=== PATIENT | male | born 1960 ===

== ENCOUNTER 2017-01-16 12:36 | Inpatient (IN) | payer OTHER ==
[2017-01-16] MEDS ORDERED: Sodium Chloride 0.9% 1,000 ML IV ONE (13:15)
[2017-01-16 13:25] LABS: BASO # 0.1 K/uL (0.0-0.2); BASO % 0.9 % (0.0-2.0); EOS % 0.4 % (0.0-4.0); HEMATOCRIT 18.4 % (35.0-51.0); LYMPH # 2.3 K/uL (1.0-4.3); LYMPH % 28.6 % (20.0-40.0); MEAN CELL VOLUME 87.2 fL (80.0-94.0); MEAN CORPUSCULAR HEMOGLOBIN 29.2 pg (27.0-31.0); MEAN CORPUSCULAR HGB CONC 33.5 g/dL (33.0-37.0); MEAN PLATELET VOLUME 10.3 fL (7.2-11.7); MONO # 0.5 K/uL (0.0-0.8); MONO % 6.6 % (0.0-10.0); NRBC % 0.1 % (0.0-2.0); RED CELL DISTRIBUTION WIDTH 13.5 % (11.5-14.5); WHITE BLOOD COUNT 8.1 K/uL (4.8-10.8)
[2017-01-16 13:33] LABS: CHLORIDE 103 mmol/L (98-107)
[2017-01-16 13:34] LABS: POTASSIUM 3.5 mmol/L (3.6-5.2); SODIUM 134 mmol/L (132-148)
--- NOTE | 2017-01-16 13:35 | C.PDOC ---
History Of Present Illness 56 y/o male presents to the ED with complains of feeling weak and tired, worse with walking for the past 3 days. Fell to the ground in his apt last night approx 0300 while walking to the bathroom. Pt also reports dark stools x3 days. Pt with 10+ visits for substance abuse including PCP, opiod abuse and psych presentations. MTPMP reviewed, patient received percocet 12/27, 40 tablets. Pt states he doesn't take percocet often, only when he has foot or back pain. Takes xanax 1mg 3x daily for anxiety. Denies fever, chills, chest pain, abdominal pain, SOB or any other complaints. Time Seen by Provider: 01/16/17 13:06 Chief Complaint (Nursing): GI Problem History Per: Patient History/Exam Limitations: no limitations Onset/Duration Of Symptoms: Days Current Symptoms Are (Timing): Still Present Severity: Moderate Recent travel outside of the [place]: No Past Medical History Reviewed: Historical Data, Nursing Documentation, Vital Signs Vital Signs: Last Vital Signs Temp 98.9 F 01/16/17 14:59 Pulse 98 H 01/16/17 14:59 Resp 19 01/16/17 14:59 BP 146/87 01/16/17 14:59 Pulse Ox 96 01/16/17 14:59 - Medical History PMH: Anxiety, CAD, Depression, HTN Denies: Pericarditis (enlarged heart) Surgical History: Appendectomy, Coronary Stent (X2) - [facility] Procedures DETOXIFICATION SERVICES FOR SUBSTANCE ABUSE TREATMENT (05/11/16) Family History: States: Unknown Family Hx - Social History Hx Tobacco Use: Yes Hx Alcohol Use: Yes Hx Substance Use: Yes - Immunization History Hx Tetanus Toxoid Vaccination: No Hx Influenza Vaccination: No Hx Pneumococcal Vaccination: No Review Of Systems Except As Marked, All Systems Reviewed And Found Negative. Constitutional: Positive for: Weakness, Other (tired). Negative for: Fever, Chills Cardiovascular: Negative for: Chest Pain Respiratory: Negative for: Shortness of Breath Gastrointestinal: Positive for: Other (dark stools). Negative for: Vomiting, Abdominal Pain Physical Exam - Physical Exam Appears: Non-toxic, No Acute Distress Skin: Warm, Dry, Pale, No Rash Head: Atraumatic, Normacephalic Eye(s): bilateral: PERRL, EOMI, Conjunctiva Pale Nose: Normal Neck: Normal, Normal ROM, Supple Chest: Symmetrical Cardiovascular: Rhythm Regular, No Murmur Respiratory: Normal Breath Sounds, No Rales, No Rhonchi, No Wheezing Gastrointestinal/Abdominal: Normal Exam, Soft, No Tenderness Rectal: Other (Questionable small hemorrhoid at 8 o'clock position. Scant light brown stool.) Extremity: Normal ROM Extremity: Bilateral: Atraumatic Neurological/Psych: Oriented x3, Normal Speech ED Course And Treatment - Laboratory Results Result Diagrams: 01/16/17 13:13 01/16/17 13:13 Lab Interpretation: Abnormal (significant anemia) ECG: Interpreted By Me ECG Rhythm: Sinus Rhythm ECG Interpretation: Abnormal Rate From EC O2 Sat by Pulse Oximetry: 100 (room air) Pulse Ox Interpretation: Normal - Radiology CXR: Interpreted by Me CXR Interpretation: Yes: No Acute Disease Progress Note: IVF, blood tx started Reevaluation Time: 15:00 Reassessment Condition: Improved - Physician Consult Information Outcome Of Conversation: 1330: d/w Dr. Black-PMD- ok to Tele Obs, start blood tx. 1430: d/w Medicine [facility]- Medical Decision Making Medical Decision Making: Plan: EKG, CXR, labs, UA, IV fluids 1500: symptomatic anemia of ? etiology ? dark stools for 3 days may be GIB, guaiaic card pending Disposition Doctor Will See Patient In The: Hospital Counseled Patient/Family Regarding: Studies Performed, Diagnosis - Disposition Disposition: HOSPITALIZED Disposition Time: 13:30 Condition: GOOD - Clinical Impression Clinical Impression: Symptomatic anemia - Scribe Statement The provider has reviewed the documentation as recorded by the Lisa Milligan Provider Attestation: All medical record entries made by the Lisa were at my direction and personally dictated by me. I have reviewed the chart and agree that the record accurately reflects my personal performance of the history, physical exam, medical decision making, and the department course for this patient. I have also personally directed, reviewed, and agree with the discharge instructions and disposition.
[2017-01-16 13:36] LABS: AST/SGOT 59 U/L (17-59); BILIRUBIN,TOTAL < 0.1 mg/dL (0.2-1.3); CARBON DIOXIDE 24 mmol/L (22-30); GFR AFRICAN-AMERICAN > 60
[2017-01-16 13:37] LABS: ALB/GLOB RATIO 1.3 (1.0-2.1); ALKALINE PHOSPHATASE 39 U/L (38-126); ALT/SGPT 64 U/L (21-72); BLOOD UREA NITROGEN 32 mg/dL (9-20); CALCIUM 8.4 mg/dl (8.6-10.4); GLUCOSE,RANDOM 105 mg/dL (75-110); TOTAL PROTEIN 6.3 g/dL (6.3-8.3)
[2017-01-16] MEDS ORDERED: Sodium Chloride 0.9% 1,000 ML ONE (13:38)
--- NOTE | 2017-01-16 13:45 | RAD ---
PROCEDURE: CHEST RADIOGRAPH, 1 VIEW HISTORY: SOB COMPARISON: None available. FINDINGS: LUNGS: Mild venous congestion. Bilateral hilar prominence. No focal infiltrate or effusion. PLEURA: No pneumothorax or pleural fluid seen. CARDIOVASCULAR: Normal. OSSEOUS STRUCTURES: No significant abnormalities. VISUALIZED UPPER ABDOMEN: Normal. OTHER FINDINGS: None. IMPRESSION: No active disease.
[2017-01-16 13:49] LABS: ALCOHOL SERUM < 10 mg/dl (0-10)
[2017-01-16 14:57] LABS: RBC URINE < 1 /hpf (0-3); URINE BILIRUBIN NEGATIVE (NEGATIVE); URINE BLOOD NEGATIVE (NEGATIVE); URINE COLOR Yellow (YELLOW); URINE GLUCOSE (UA) NORMAL (Normal); URINE KETONE NEGATIVE (NEGATIVE); URINE LEUKOCYTE ESTERASE NEG Leu/uL (Negative); URINE PROTEIN NEGATIVE (NEGATIVE); URINE UROBILINOGEN NORMAL mg/dL (0.2-1.0); WBC URINE 1 /hpf (0-5)
[2017-01-16] MEDS ORDERED: Pantoprazole 80 MG in Sodium Chloride 0.9% 100 ML IVP SCH (15:30)
--- NOTE | 2017-01-16 16:19 | CP.PCM.HP ---
History of Present Illness - History of Present Illness History of Present Illness: CC: "Stomach Pain, weakness" HPI: PT is a 56 year old male with a PMHx of Hepatitis C, CAD s/p stents (2013) , HTN, and symptomatic bradycardia s/p pacemaker who presented to the ED with complaints of abdominal pain and weakness that began yesterday. Pt is a poor historian. Past medical history was obtained through previous visit records as pt reports that he only has a pacemaker as a result of a 'slow heart rate'. Pt reports that the pain began yesterday and was sharp and chronic. Pt reports that the pain is worse with eating. Pt also reports that he was nauseous yesterday, but he did not vomit. Pt also reports diarrhea. Pt denies fever, chills, chest pain, shortness of breath, melena, hematochezia. PMHx: Hepatitis C, CAD s/p stents (2013), HTN, and symptomatic bradycardia s/p pacemaker Home medications: does not recall, norvasc and clonidine as per MAR Allergies: NKDA Past Surgical Hx: AICD placement, does not recall the date Social Hx: reports he quit cigarettes and alcohol 15-20 years ago, denies prior history of drug abuse, which conflicts with previous hx of polysubstance abuse in reports Family Hx: unknown Present on Admission - Present on Admission Any Indicators Present on Admission: No Review of Systems - Constitutional Constitutional: absent: Chills, Fever, Headache - EENT Eyes: absent: Blurred Vision, Change in Vision Ears: absent: Disequilibrium Nose/Mouth/Throat: absent: Epistaxis, Nasal Congestion - Cardiovascular Cardiovascular: absent: Chest Pain, Dyspnea, Leg Edema - Respiratory Respiratory: absent: Cough, Dyspnea - Gastrointestinal Gastrointestinal: Abdominal Pain, Diarrhea, Dyspepsia, Nausea - Musculoskeletal Musculoskeletal: absent: Arthralgias - Neurological Neurological: absent: Dizziness, Focal Weakness - Hematologic/Lymphatic Hematologic: absent: Easy Bleeding Past Patient History - Infectious Disease Hx of Infectious Diseases: None - Past Medical History & Family History Past Medical History?: Yes - Past Social History Smoking Status: Light Smoker < 10 Cigarettes Daily - CARDIAC Hx Hypertension: Yes - PULMONARY Hx Respiratory Disorders: No - NEUROLOGICAL Hx Neurological Disorder: No - HEENT Hx HEENT Problems: No - RENAL Hx Chronic Kidney Disease: No - ENDOCRINE/METABOLIC Hx Endocrine Disorders: No - HEMATOLOGICAL/ONCOLOGICAL Hx Blood Disorders: No - INTEGUMENTARY Hx Dermatological Problems: No - MUSCULOSKELETAL/RHEUMATOLOGICAL Hx Musculoskeletal Disorders: No Hx Falls: No - GASTROINTESTINAL Hx Gastrointestinal Disorders: No - GENITOURINARY/GYNECOLOGICAL Hx Genitourinary Disorders: No - PSYCHIATRIC Hx Anxiety: Yes Hx Depression: Yes Hx Substance Use: Yes - SURGICAL HISTORY Hx Appendectomy: Yes Hx Coronary Stent: Yes (X2) - ANESTHESIA Hx Anesthesia: Yes Hx Anesthesia Reactions: No Hx Malignant Hyperthermia: No Meds Allergies/Adverse Reactions: Allergies Allergy/AdvReac Type Severity Reaction Status Date / Time No Known Allergies Allergy Verified 01/16/17 12:45 Physical Exam - Constitutional Appears: No Acute Distress - Head Exam Head Exam: ATRAUMATIC, NORMOCEPHALIC - Eye Exam Eye Exam: EOMI, PERRL - ENT Exam ENT Exam: Mucous Membranes Moist. absent: Mucous Membranes Dry - Neck Exam Neck exam: Positive for: Full Rom - Respiratory Exam Respiratory Exam: Clear to Auscultation Bilateral. absent: Rales, Rhonchi, Wheezes - Cardiovascular Exam Cardiovascular Exam: +S1, +S2. absent: Gallop, Rubs - GI/Abdominal Exam GI & Abdominal Exam: Distended, Soft. absent: Guarding, Hernia, Rigid - Extremities Exam Extremities exam: Positive for: full ROM. Negative for: pedal edema - Neurological Exam Neurological exam: Alert, Oriented x3 - Psychiatric Exam Psychiatric exam: Normal Affect - Skin Skin Exam: Normal Color, Warm Results - Vital Signs Recent Vital Signs: Last Vital Signs Temp 98.9 F 01/16/17 14:59 Pulse 98 H 01/16/17 14:59 Resp 19 01/16/17 14:59 BP 146/87 01/16/17 14:59 Pulse Ox 100 01/16/17 15:25 - Labs Result Diagrams: 01/16/17 13:13 01/16/17 13:13 Labs: Laboratory Results - last 24 hr 01/16/17 01/16/17 14:42 14:42 Urine Color Yellow Urine Clarity Clear Urine pH 5.0 Ur Specific [place] 1.018 Urine Protein Negative Urine Glucose (UA) Normal Urine Ketones Negative Urine Blood Negative Urine Nitrate Negative Urine Bilirubin Negative Urine Urobilinogen Normal Ur Leukocyte Esterase Neg Urine WBC (Auto) 1 Urine RBC (Auto) < 1 Hyaline Casts 11-20 H Urine Opiates Screen Negative Urine Methadone Screen Negative Ur Barbiturates Screen Negative Ur Phencyclidine Scrn Negative Ur Amphetamines Screen Negative U Oth Cocaine Metabols Negative U Cannabinoids Screen Negative Assessment & Plan - Assessment and Plan (Free Text) Assessment: Abdominal Pain: Abd/Pelvis CT with IV contrast pending Anemia possibly due to GI bleed: H/H: 6.2/18.4 type and screen one unit of prbcs transfused Protonix drip NS 125 cc/hr Iron studies, B12 pending GI, Dr. Hansen, consulted. Help appreciated. CBc q4h HTN: Norvasc 10 mg po qd Coronary Artery Disease: Aspirin held due anemia Hx of substance abuse: Urine tox screen negative Prophylactic Measures: DVT: SCDs, chemica, anticoagulation held due to possible GI bleed GI: protonix drip
[2017-01-16] MEDS: Sodium Chloride 0.9% 1,000 ML IV SCH (17:49)
[2017-01-16 19:51] LABS: IRON 299 ug/dL (49-181)
[2017-01-16] MEDS: Pantoprazole 80 MG in Sodium Chloride 0.9% 100 ML IVPB SCH (20:09)
[2017-01-16] MEDS ORDERED: Iodixanol 320 MG/ML 100 ML BOTTLE IV ONE (20:52)
[2017-01-17] MEDS: Sodium Chloride 0.9% 1,000 ML IV SCH (03:48)
[2017-01-17] MEDS: Pantoprazole 80 MG in Sodium Chloride 0.9% 100 ML IVPB SCH ×2 (03:56→14:38)
[2017-01-17 06:28] LABS: BASO # 0.1 K/uL (0.0-0.2); EOS # 0.2 K/uL (0.0-0.7); EOS % 3.3 % (0.0-4.0); LYMPH # 2.9 K/uL (1.0-4.3); LYMPH % 38.9 % (20.0-40.0); MEAN CORPUSCULAR HEMOGLOBIN 29.2 pg (27.0-31.0); MEAN CORPUSCULAR HGB CONC 33.2 g/dL (33.0-37.0); MEAN PLATELET VOLUME 10.2 fL (7.2-11.7); MONO # 0.4 K/uL (0.0-0.8); MONO % 5.7 % (0.0-10.0); NRBC % 0.3 % (0.0-2.0); RED CELL DISTRIBUTION WIDTH 13.9 % (11.5-14.5); WHITE BLOOD COUNT 7.3 K/uL (4.8-10.8)
--- NOTE | 2017-01-17 07:06 | CP.PCM.PN ---
<HerreraCatina - Last Filed: 01/17/17 14:12> Subjective - Date & Time of Evaluation Date of Evaluation: 01/17/17 Time of Evaluation: 07:15 - Subjective Subjective: PGY1 Medicine note for Dr. Black Patient seen and examined at bedside. Patient reported a mild headache but when asked if he would take tylenol NH as he was unable to get anything PO as he was due for an EGD and was NPO overnight he refused. Patient retold how he noticed some black stool on Sunday 01/14 and on Monday 01/15 he noticed some red blood in the toilet bowl. He also reported that he felt like he "felt like his ears were ringing and he passed out" in the bathroom over Monday night which is why his neighbor decided to bring him in on Monday. He denied any pain in his chest, SOB, cough, abdominal pain, nausea, vomiting, diarrhea, constipation, blood in his urine, dysuria, pain in his legs bilaterally. Objective - Vital Signs/Intake and Output Vital Signs (last 24 hours): Temp Pulse Resp BP Pulse Ox 98.2 F 85 20 124/70 100 01/17/17 04:05 01/17/17 04:05 01/17/17 04:05 01/17/17 04:05 01/17/17 04:05 - Medications Medications: Current Medications Acetaminophen (Tylenol 325mg Tab) 650 mg PO Q6 PRN PRN Reason: Pain, moderate (4-7) Last Admin: 01/16/17 20:16 Dose: 650 mg Amlodipine Besylate (Norvasc) 10 mg PO DAILY [facility] Clonidine HCl (Catapres) 0.2 mg PO DAILY [facility] Sodium Chloride (Sodium Chloride 0.9%) 1,000 mls @ 125 mls/hr IV .Q8H [facility] Last Admin: 01/17/17 03:48 Dose: 125 mls/hr Pantoprazole Sodium 80 mg/ (Sodium Chloride) 100 mls @ 10 mls/hr IVPB .Q10H [facility] PRN Reason: 8 MG/HR Last Admin: 01/17/17 03:56 Dose: 10 mls/hr Pneumococcal Polyvalent Vaccine (Pneumovax 23 Vaccine) 0.5 ml IM .ONCE ONE Stop: 01/18/17 10:01 Quetiapine Fumarate (Seroquel) 100 mg PO HS [facility] Last Admin: 01/17/17 01:27 Dose: 100 mg - Labs Labs: 01/17/17 06:19 PT 11.4 SECONDS (9.7-12.2) 01/16/17 13:13 INR 1.0 01/16/17 13:13 APTT 27 SECONDS (21-34) 01/16/17 13:13 - Constitutional Appears: Non-toxic, No Acute Distress - Head Exam Head Exam: NORMAL INSPECTION - Eye Exam Eye Exam: Normal appearance. absent: Conjunctival injection, Scleral icterus - ENT Exam ENT Exam: Mucous Membranes Moist - Neck Exam Neck Exam: Full ROM, Normal Inspection. absent: Tenderness - Respiratory Exam Respiratory Exam: Clear to Ausculation Bilateral, NORMAL BREATHING PATTERN. absent: Accessory Muscle Use, Rales, Rhonchi, Wheezes, Respiratory Distress - Cardiovascular Exam Cardiovascular Exam: REGULAR RHYTHM, RRR, +S1, +S2 - GI/Abdominal Exam GI & Abdominal Exam: Soft, Normal Bowel Sounds. absent: Firm, Guarding, Rigid, Tenderness - Rectal Exam Rectal Exam: Deferred - Extremities Exam Extremities Exam: Normal Capillary Refill, Normal Inspection. absent: Pedal Edema, Tenderness - Back Exam Back Exam: NORMAL INSPECTION. absent: rash noted - Neurological Exam Neurological Exam: Alert, Awake, Oriented x3 - Psychiatric Exam Psychiatric exam: Normal Affect, Normal Mood - Skin Skin Exam: Dry, Intact, Normal Color, Warm Assessment and Plan - Assessment and Plan (Free Text) Assessment: 56 year old male with a PMHx of Hepatitis C, CAD s/p stents (2013), HTN, and symptomatic bradycardia s/p pacemaker who presented to the ED with complaints of abdominal pain and weakness Plan: Acute Anemia -likely secondary to GI bleed -H&H on admission 01/16: 6.2&18.4 - patient was transfused 1U PRBC in the ED -H&H on 01/17 in the AM was 5.6&17 -Patient to be transfused 4U PRBC total on 01/17 -f/u repeat CBC -Protonix gtt -Reglan 10mg IVP ACHS -Vitamin B12: 384 -Iron: 299 -TIBC: 320 -%sat: 93 Gastric Ulcers -likely source of GI bleed -EGD with Dr. Hansen showed medium-sized hiatal hernia; gastric ulcers with clean base; chronic gastritis; erythematous duodenopathy -recommended clear liquid diet; repeat upper endoscopy in 8 weeks -patient for colonoscopy 01/18 -NPO after midnight -f/u FOBT -GI Dr. Hansen on board Abdominal Pain: -Abd/Pelvis CT: horshoe kidney, anatomic variant. No hydronephrosis or obstructing calculus evident. -Patient denied any abdominal pain this morning -Tylenol 650mg PO Q6 PRN pain HTN: -Norvasc 10 mg po qd -Clonidine 0.2mg po daily Coronary Artery Disease: -Aspirin held due anemia Hx of substance abuse: -Urine tox + benzo -Monitor Hx of insomnia/depression: -Seroquel 100mg PO HS Prophylactic Measures: -SCDs -chemical anticoagulation held due to GI bleed -protonix gtt -clear liquid diet -NPO after midnight for colonoscopy in the AM Plan discussed with Dr. Wayne Silverman PGY1 <Garland Black Jr. - Last Filed: 01/23/17 10:01> Objective - Vital Signs/Intake and Output Vital Signs (last 24 hours): Temp Pulse Resp BP Pulse Ox 98.2 F 77 20 141/80 99 01/18/17 15:19 01/18/17 16:00 01/18/17 15:19 01/18/17 15:19 01/18/17 15:19 - Labs Labs: 01/18/17 07:53 01/18/17 07:53 PT 11.4 SECONDS (9.7-12.2) 01/16/17 13:13 INR 1.0 01/16/17 13:13 APTT 27 SECONDS (21-34) 01/16/17 13:13 Attending/Attestation - Attestation I have personally seen and examined this patient.: Yes I have fully participated in the care of the patient.: Yes I have reviewed all pertinent clinical information, including history, physical exam and plan: Yes Notes (Text): 01/23/17 10:01 Resident note and findings reviewed and agreed with
[2017-01-17 08:17] LABS: CHLORIDE 107 mmol/L (98-107); SODIUM 136 mmol/L (132-148)
[2017-01-17 08:18] LABS: POTASSIUM 3.4 mmol/L (3.6-5.2)
[2017-01-17 08:20] LABS: ALB/GLOB RATIO 1.2 (1.0-2.1); ALKALINE PHOSPHATASE 37 U/L (38-126); ALT/SGPT 50 U/L (21-72); AST/SGOT 54 U/L (17-59); BILIRUBIN,TOTAL 0.5 mg/dL (0.2-1.3); BLOOD UREA NITROGEN 17 mg/dL (9-20); CARBON DIOXIDE 23 mmol/L (22-30); GFR AFRICAN-AMERICAN > 60; GLUCOSE,RANDOM 95 mg/dL (75-110); TOTAL PROTEIN 5.5 g/dL (6.3-8.3)
[2017-01-17 08:21] LABS: CALCIUM 7.6 mg/dl (8.6-10.4); MAGNESIUM 2.3 mg/dL (1.6-2.3); PHOSPHOROUS 2.6 mg/dL (2.5-4.5)
--- NOTE | 2017-01-17 10:20 | CARD ---
APPROVED REPORT EKG Measurement Heart [id number] <Conclusion> Sinus tachycardia Minimal voltage criteria for LVH, may be normal variant Nonspecific T wave abnormality Abnormal ECG
--- NOTE | 2017-01-17 10:49 | CT ---
PROCEDURE: CT Abdomen and Pelvis with and without intravenous contrast HISTORY: abdominal pain, distention COMPARISON: Abdominal ultrasound performed 11/14/16 TECHNIQUE: Axial images of the abdomen were obtained in the pre contrast, portal venous and delayed phases of enhancement. Coronal and sagittal reformats were generated and reviewed. Contrast dose: 100 cc Visipaque 320 Radiation dose: Total exam DLP = 2150.60 MGy-cm. This CT exam was performed using one or more of the following dose reduction techniques: Automated exposure control, adjustment of the mA and/or kV according to patient size, and/or use of iterative reconstruction technique. FINDINGS: LOWER THORAX: No visible consolidation, pleural effusion, or pneumothorax. LIVER: Unremarkable. GALLBLADDER AND BILE DUCTS: Unremarkable. PANCREAS: Unremarkable. SPLEEN: Unremarkable. ADRENALS: Unremarkable. KIDNEYS AND URETERS: Horseshoe kidney. No obstructing calculi. No hydronephrosis. VASCULATURE: Scattered atherosclerotic calcifications. No aortic aneurysm. BOWEL: Stomach is nondistended. Lack of oral contrast limits evaluation for bowel pathology. Bowel loops appear within normal limits of caliber without evidence of obstruction. APPENDIX: The appendix appears within normal limits of caliber. No secondary signs of acute appendicitis PERITONEUM: No significant free fluid. No definite free air. LYMPH NODES: No bulky adenopathy identified. BLADDER: Unremarkable. REPRODUCTIVE: Unremarkable. BONES: Scattered mild degenerative changes. Grade 1 anterolisthesis of L2 on L3, likely degenerative. OTHER FINDINGS: None. IMPRESSION: Horseshoe kidney, anatomic variant. No hydronephrosis or obstructing calculus evident. Preliminary impression was provided by virtual radiologic.
[2017-01-17] MEDS ORDERED: Etomidate 20 mg/10ml Inj IV ONE (11:25)
[2017-01-17] MEDS ORDERED: Lactated Ringer's 500 ML IV ONE (11:27)
[2017-01-17] MEDS ORDERED: Potassium Chloride 20 mEq ER Tab PO ONE (13:06)
[2017-01-17] MEDS ORDERED: Peg-Electrolyte Oral Soln 4L (Golytely) PO ONE (14:00)
[2017-01-17] MEDS ORDERED: Bisacodyl 5mg EC Tab PO ONE ×2 (17:00→22:00)
--- NOTE | 2017-01-17 22:21 | CP.PCM.PCO ---
Physician Communication Note - Physician Communication Note Physician Communication Note: Pt is seen, case discussed. No psych history or symptoms. Consult cancelled
[2017-01-18] MEDS: Pantoprazole 80 MG in Sodium Chloride 0.9% 100 ML IVPB SCH ×2 (01:30→11:04)
--- NOTE | 2017-01-18 07:17 | CP.PCM.PN ---
<HerreraCatina hays - Last Filed: 01/18/17 12:49> Subjective - Date & Time of Evaluation Date of Evaluation: 01/18/17 Time of Evaluation: 08:00 - Subjective Subjective: PGY1 Medicine note for Dr. Black Patient seen and examined at bedside. Patient reports feeling much better than on admission. He stated he is hungry as he has been NPO overnight for colonoscopy at 14:00 this afternoon. Patient reports that after drinking his bowel prep he had multiple BMs at night and this AM which were dark in color; he denied noticing any dayday blood in his stool. He reported that by this morning the BMs became lap hand tool in color. He is aware of the ulcers that were found on EGD and admitted to having taken 800mg ibuprofen on multiple occasions due to muscle aches secondary to his work. He reports his headache is much improved since yesterday and was not requesting any pain medication. Patient denied any fever, chills, chest pain, palpitations, SOB, cough, abdominal pain, nausea, vomiting, constipation, dysuria, heamturia, pain in his legs bilaterally. Patient is eager to eat after his colonoscopy. Objective - Vital Signs/Intake and Output Vital Signs (last 24 hours): Temp Pulse Resp BP Pulse Ox 98.3 F 75 20 121/74 98 01/18/17 02:30 01/18/17 03:51 01/18/17 02:30 01/18/17 02:30 01/17/17 23:10 Intake and Output: 01/18/17 01/18/17 06:59 18:59 Intake Total 979 Balance 979 - Medications Medications: Current Medications Acetaminophen (Tylenol 325mg Tab) 650 mg PO Q6 PRN PRN Reason: Pain, moderate (4-7) Last Admin: 01/17/17 14:45 Dose: 650 mg Amlodipine Besylate (Norvasc) 10 mg PO DAILY [facility] Last Admin: 01/17/17 12:52 Dose: 10 mg Clonidine HCl (Catapres) 0.2 mg PO DAILY [facility] Last Admin: 01/17/17 12:52 Dose: 0.2 mg Pantoprazole Sodium 80 mg/ (Sodium Chloride) 100 mls @ 10 mls/hr IVPB .Q10H [facility] PRN Reason: 8 MG/HR Last Admin: 01/18/17 01:30 Dose: 10 mls/hr Metoclopramide HCl (Reglan) 10 mg IVP ACHS [facility] Last Admin: 01/17/17 22:08 Dose: 10 mg Pneumococcal Polyvalent Vaccine (Pneumovax 23 Vaccine) 0.5 ml IM .ONCE ONE Stop: 01/18/17 10:01 Quetiapine Fumarate (Seroquel) 100 mg PO HS [facility] Last Admin: 01/17/17 22:08 Dose: 100 mg - Labs Labs: 01/17/17 06:19 01/17/17 06:19 PT 11.4 SECONDS (9.7-12.2) 01/16/17 13:13 INR 1.0 01/16/17 13:13 APTT 27 SECONDS (21-34) 01/16/17 13:13 - Constitutional Appears: Non-toxic, No Acute Distress - Head Exam Head Exam: ATRAUMATIC, NORMAL INSPECTION, NORMOCEPHALIC - Eye Exam Eye Exam: Normal appearance. absent: Conjunctival injection, Scleral icterus - ENT Exam ENT Exam: Mucous Membranes Moist - Neck Exam Neck Exam: Full ROM, Normal Inspection. absent: Tenderness - Respiratory Exam Respiratory Exam: Clear to Ausculation Bilateral, NORMAL BREATHING PATTERN. absent: Rales, Rhonchi, Wheezes - Cardiovascular Exam Cardiovascular Exam: REGULAR RHYTHM, RRR, +S1, +S2. absent: Murmur - GI/Abdominal Exam GI & Abdominal Exam: Soft, Normal Bowel Sounds. absent: Firm, Guarding, Rigid, Tenderness - Rectal Exam Rectal Exam: Deferred - Extremities Exam Extremities Exam: Normal Capillary Refill, Normal Inspection. absent: Pedal Edema, Tenderness - Back Exam Back Exam: NORMAL INSPECTION. absent: rash noted, tenderness - Neurological Exam Neurological Exam: Alert, Awake, Oriented x3 - Psychiatric Exam Psychiatric exam: Normal Affect, Normal Mood - Skin Skin Exam: Dry, Intact, Normal Color, Warm Assessment and Plan - Assessment and Plan (Free Text) Assessment: 56 year old male with a PMHx of Hepatitis C, CAD s/p stents (2013), HTN, and symptomatic bradycardia s/p pacemaker who presented to the ED with complaints of abdominal pain and weakness Plan: Acute Anemia -likely secondary to GI bleed -repeat H&H 01/18 9.3/27.5 -H&H on admission 01/16: 6.2&18.4 - patient was transfused 1U PRBC in the ED -H&H on 01/17 in the AM was 5.6&17 -Patient transfused 4U PRBC total on 01/17 -Protonix gtt -Reglan 10mg IVP ACHS -Vitamin B12: 384 -Iron: 299 -TIBC: 320 -%sat: 93 Peptic Ulcer Disease -likely source of GI bleed -EGD with Dr. Hansen showed medium-sized hiatal hernia; gastric ulcers with clean base; chronic gastritis; erythematous duodenopathy -Recommended repeat upper endoscopy in 8 weeks -Sucralfate 1gm PO ACBD -Colonoscopy with Dr. Hansen showed nonbleeding internal hemorrhoids, congested mucosa in the distal descending colon, moderate colonic spasm, and stool in the entir examined colon -Recommended repeat colonoscopy in 1 year and follow up in office in 4 weeks. -FOBT + -GI Dr. Hansen on board Abdominal Pain: -Abd/Pelvis CT: horshoe kidney, anatomic variant. No hydronephrosis or obstructing calculus evident. -Patient denied any abdominal pain this morning -Tylenol 650mg PO Q6 PRN pain HTN: -Norvasc 10 mg po qd -Clonidine 0.2mg po daily Coronary Artery Disease: -Aspirin held due anemia Hx of substance abuse: -Urine tox + benzo -Monitor Hx of insomnia/depression: -Seroquel 100mg PO HS Prophylactic Measures: -SCDs -chemical anticoagulation held due to GI bleed -protonix gtt -LR @ 75cc/hr -Heart Healthy diet Plan discussed with Dr. Wayne Silverman PGY1 <Garland Black Jr. - Last Filed: 01/23/17 10:02> Objective - Vital Signs/Intake and Output Vital Signs (last 24 hours): Temp Pulse Resp BP Pulse Ox 98.2 F 77 20 141/80 99 01/18/17 15:19 01/18/17 16:00 01/18/17 15:19 01/18/17 15:19 01/18/17 15:19 - Labs Labs: 01/18/17 07:53 01/18/17 07:53 PT 11.4 SECONDS (9.7-12.2) 01/16/17 13:13 INR 1.0 01/16/17 13:13 APTT 27 SECONDS (21-34) 05/08/17 13:13 Attending/Attestation - Attestation I have personally seen and examined this patient.: Yes I have fully participated in the care of the patient.: Yes I have reviewed all pertinent clinical information, including history, physical exam and plan: Yes Notes (Text): 01/23/17 10:02 Agree with resident note and findings
[2017-01-18 08:04] LABS: BASO # 0.1 K/uL (0.0-0.2); EOS % 4.8 % (0.0-4.0); LYMPH # 1.7 K/uL (1.0-4.3); MONO # 0.5 K/uL (0.0-0.8); NRBC % 0.1 % (0.0-2.0); WHITE BLOOD COUNT 7.3 K/uL (4.8-10.8)
[2017-01-18 08:05] LABS: BASO % 1.1 % (0.0-2.0); EOS # 0.4 K/uL (0.0-0.7); HEMATOCRIT 27.5 % (35.0-51.0); MEAN PLATELET VOLUME 9.5 fL (7.2-11.7); MONO % 6.7 % (0.0-10.0); RED CELL DISTRIBUTION WIDTH 14.5 % (11.5-14.5)
[2017-01-18 08:15] LABS: MEAN CELL VOLUME 85.5 fL (80.0-94.0)
[2017-01-18 08:57] LABS: CHLORIDE 104 mmol/L (98-107); POTASSIUM 3.1 mmol/L (3.6-5.2); SODIUM 137 mmol/L (132-148)
[2017-01-18 08:59] LABS: ALB/GLOB RATIO 1.3 (1.0-2.1); ALKALINE PHOSPHATASE 42 U/L (38-126); ALT/SGPT 65 U/L (21-72); AST/SGOT 100 U/L (17-59); BLOOD UREA NITROGEN 6 mg/dL (9-20); CARBON DIOXIDE 25 mmol/L (22-30); GFR AFRICAN-AMERICAN > 60; GLUCOSE,RANDOM 93 mg/dL (75-110); TOTAL PROTEIN 6.3 g/dL (6.3-8.3)
[2017-01-18 09:00] LABS: CALCIUM 8.2 mg/dl (8.6-10.4); MAGNESIUM 2.2 mg/dL (1.6-2.3); PHOSPHOROUS 2.5 mg/dL (2.5-4.5)
[2017-01-18] MEDS ORDERED: Pneumococcal 23-Valent Vaccine IM ONE (10:00)
[2017-01-18] MEDS ORDERED: Propofol 10 mg/ml Inj (20 ML) ONE (11:35)
[2017-01-18] MEDS ORDERED: Lactated Ringer's 500 ML IV SCH (12:00)
[2017-01-18 13:03] VITALS: RESP 20; O2SAT 99
[2017-01-18 15:25] VITALS: BP 141/80; TEMP 98.2
--- NOTE | 2017-01-18 15:47 | CP.PCM.DIS ---
Provider - Provider Date of Admission: 01/16/17 13:35 Attending physician: Garland Black Jr, MD Primary care physician: Dr. Black Consults: LEODAN Hansen Time Spent in preparation of Discharge (in minutes): 45 Hospital Course - Lab Results Lab Results: Most Recent Lab Values WBC 7.3 K/uL (4.8-10.8) 01/18/17 07:53 RBC 3.22 Mil/uL (4.40-5.90) L 01/18/17 07:53 Hgb 9.3 g/dL (12.0-18.0) L D 01/18/17 07:53 Hct 27.5 % (35.0-51.0) L 01/18/17 07:53 MCV 85.5 fL (80.0-94.0) D 01/18/17 07:53 MCH 29.0 pg (27.0-31.0) 01/18/17 07:53 MCHC 34.0 g/dL (33.0-37.0) 01/18/17 07:53 RDW 14.5 % (11.5-14.5) 01/18/17 07:53 Plt Count 160 K/uL (130-400) 01/18/17 07:53 MPV 9.5 fL (7.2-11.7) 01/18/17 07:53 Neut % (Auto) 64.4 % (50.0-75.0) 01/18/17 07:53 Lymph % (Auto) 23.0 % (20.0-40.0) 01/18/17 07:53 [place] % (Auto) 6.7 % (0.0-10.0) 01/18/17 07:53 Eos % (Auto) 4.8 % (0.0-4.0) H 01/18/17 07:53 Baso % (Auto) 1.1 % (0.0-2.0) 01/18/17 07:53 Neut # 4.7 K/uL (1.8-7.0) 01/18/17 07:53 Lymph # 1.7 K/uL (1.0-4.3) 01/18/17 07:53 [place] # 0.5 K/uL (0.0-0.8) 01/18/17 07:53 Eos # 0.4 K/uL (0.0-0.7) 01/18/17 07:53 Baso # 0.1 K/uL (0.0-0.2) 01/18/17 07:53 PT 11.4 SECONDS (9.7-12.2) 01/16/17 13:13 INR 1.0 01/16/17 13:13 APTT 27 SECONDS (21-34) 01/16/17 13:13 Sodium 137 mmol/L (132-148) 01/18/17 07:53 Potassium 3.1 mmol/L (3.6-5.2) L 01/18/17 07:53 Chloride 104 mmol/L (98-107) 01/18/17 07:53 Carbon Dioxide 25 mmol/L (22-30) 01/18/17 07:53 Anion Gap 11 (10-20) 01/18/17 07:53 BUN 6 mg/dL (9-20) L 01/18/17 07:53 Creatinine 0.6 MG/DL (0.8-1.5) L 01/18/17 07:53 Est GFR ( Amer) > 60 01/18/17 07:53 Est GFR (Non-Af Amer) > 60 01/18/17 07:53 Random Glucose 93 mg/dL (75-110) 01/18/17 07:53 Calcium 8.2 mg/dl (8.6-10.4) L 01/18/17 07:53 Phosphorus 2.5 mg/dL (2.5-4.5) 01/18/17 07:53 Magnesium 2.2 mg/dL (1.6-2.3) 01/18/17 07:53 Iron 299 ug/dL (49-181) H 01/16/17 19:37 TIBC 320 ug/dL (250-450) 01/16/17 19:37 % Saturation 93 (20-55) H 01/16/17 19:37 Total Bilirubin 1.0 mg/dL (0.2-1.3) 01/18/17 07:53 AST 100 U/L (17-59) H D 01/18/17 07:53 ALT 65 U/L (21-72) 01/18/17 07:53 Alkaline Phosphatase 42 U/L (38-126) 01/18/17 07:53 Troponin I < 0.0120 ng/mL (0.00-0.120) 01/16/17 13:13 NT-Pro-B Natriuret Pep 73.6 pg/mL (0-900) 01/16/17 13:13 Total Protein 6.3 g/dL (6.3-8.3) 01/18/17 07:53 Albumin 3.5 g/dL (3.5-5.0) D 01/18/17 07:53 Globulin 2.8 gm/dL (2.2-3.9) 01/18/17 07:53 Albumin/Globulin Ratio 1.3 (1.0-2.1) 01/18/17 07:53 Vitamin B12 384 pg/mL (239-931) 01/16/17 19:37 Urine Color Yellow (YELLOW) 01/16/17 14:42 Urine Clarity Clear (Clear) 01/16/17 14:42 Urine pH 5.0 (5.0-8.0) 01/16/17 14:42 Ur Specific [place] 1.018 (1.003-1.030) 01/16/17 14:42 Urine Protein Negative mg/dL (NEGATIVE) 01/16/17 14:42 Urine Glucose (UA) Normal mg/dL (Normal) 01/16/17 14:42 Urine Ketones Negative mg/dL (NEGATIVE) 01/16/17 14:42 Urine Blood Negative (NEGATIVE) 01/16/17 14:42 Urine Nitrate Negative (NEGATIVE) 01/16/17 14:42 Urine Bilirubin Negative (NEGATIVE) 01/16/17 14:42 Urine Urobilinogen Normal mg/dL (0.2-1.0) 01/16/17 14:42 Ur Leukocyte Esterase Neg [place]/uL (Negative) 01/16/17 14:42 Urine WBC (Auto) 1 /hpf (0-5) 01/16/17 14:42 Urine RBC (Auto) < 1 /hpf (0-3) 01/16/17 14:42 Hyaline Casts 11-20 /lpf (0-2) H 01/16/17 14:42 Stool Occult Blood Positive (NEGATIVE) H 01/18/17 08:26 Urine Opiates Screen Negative (NEGATIVE) 01/16/17 14:42 Urine Methadone Screen Negative (NEGATIVE) 01/16/17 14:42 Ur Barbiturates Screen Negative (NEGATIVE) 01/16/17 14:42 Ur Phencyclidine Scrn Negative (NEGATIVE) 01/16/17 14:42 Ur Amphetamines Screen Negative (NEGATIVE) 01/16/17 14:42 U Benzodiazepines Scrn Positive (NEGATIVE) H 01/16/17 14:42 U Oth Cocaine Metabols Negative (NEGATIVE) 01/16/17 14:42 U Cannabinoids Screen Negative (NEGATIVE) 01/16/17 14:42 Alcohol, Quantitative < 10 mg/dl (0-10) 01/16/17 13:13 Hepatitis A IgM Ab Negative (NEGATIVE) 01/16/17 19:37 Hep Bs Antigen Negative (NEGATIVE) 01/16/17 19:37 Hep B Core IgM Ab Negative (NEGATIVE) 01/16/17 19:37 Hepatitis C Antibody Reactive (NEGATIVE) H 01/16/17 19:37 HIV 1&2 Antibody Screen Negative (NEGATIVE) 01/16/17 19:37 Blood Type O POSITIVE 01/16/17 13:13 Antibody Screen Negative 01/16/17 13:13 - Hospital Course Hospital Course: Upon Admission PT is a 56 year old male with a PMHx of Hepatitis C, CAD s/p stents (2013), HTN , and symptomatic bradycardia s/p pacemaker who presented to the ED with complaints of abdominal pain and weakness that began yesterday. Pt is a poor historian. Past medical history was obtained through previous visit records as pt reports that he only has a pacemaker as a result of a 'slow heart rate'. Pt reports that the pain began yesterday and was sharp and chronic. Pt reports that the pain is worse with eating. Pt also reports that he was nauseous yesterday, but he did not vomit. Pt also reports diarrhea. Pt denies fever, chills, chest pain, shortness of breath, melena, hematochezia. Patient was admitted for symptomatic anemia and GI Dr. Hansen was consulted. Patient had a hgb of 6.2 on admission and after being transfused 1U PRBC it dropped to 6.2. Patient was transfused 4U total and placed on protonix drip. Abd /Pelvis CT showed horshoe kidney, anatomic variant. No hydronephrosis or obstructing calculus evident. Patient had EGD that showed medium-sized hiatal hernia; gastric ulcers with clean base; chronic gastritis; erythematous duodenopathy and recommended repeat EGD in 8 weeks. Patient also had a colonoscopy that showed nonbleeding internal hemorrhoids, congested mucosa in the distal descending colon, moderate colonic spasm, and stool in the entir examined colon with recommendation for repeat colonoscopy in 1 year. Patient's Hgb improved and he was clinically deemed medically stable for discharge. 1) Acute Anemia: resolved 2) PUD: recommended repeat EGD in 8 weeks and patient prescribed omeprazole and reglan and f/u with GI. 3) Abdominal pain: resolved 4) HTN: continue home meds 5) CAD: continue home meds 6) Insomnia/depression: continue home meds Upon discharge: Patient stable for discharge home as per Dr. Black and GI Dr. Hansen Patient to resume home medications and to additionally take new medications as prescribed: Omeprazole 40mg PO daily Disp#30 Reglan 5mg PO BID before meals Disp#60 Patient to follow up with PMD within 7 days. Patient to also follow up with GI within 2 weeks. Patient is to have a repeat EGD within 8 weeks and to have a repeat colonsocopy within 1 year. Patient has been advised to not eat many citrus foods. Patient has also been strongly advised to begin taking OTC iron tablets daily. If symptoms persist or worsen patient advised to visit ER immediately. Instructions discussed in detail with patient who understands and agrees. Discharge Exam - Head Exam Head Exam: ATRAUMATIC, NORMAL INSPECTION, NORMOCEPHALIC - Eye Exam Eye Exam: Normal appearance. absent: Conjunctival injection, Scleral icterus Pupil Exam: NORMAL ACCOMODATION - ENT Exam ENT Exam: Mucous Membranes Moist - Neck Exam Neck exam: Full Rom, Normal Inspection - Respiratory Exam Respiratory Exam: Clear to PA & Lateral, NORMAL BREATHING PATTERN. absent: Rales, Rhonchi, Wheezes - Cardiovascular Exam Cardiovascular Exam: REGULAR RHYTHM, RRR, +S1, +S2. absent: Systolic Murmur - GI/Abdominal Exam GI & Abdominal Exam: Normal Bowel Sounds, Soft. absent: Firm, Guarding, Rigid, Tenderness - Extremities Exam Extremities exam: normal capillary refill, normal inspection, pedal pulses present - Back Exam Back exam: NORMAL INSPECTION. absent: rash noted - Neurological Exam Neurological exam: Alert, Oriented x3 - Psychiatric Exam Psychiatric exam: Normal Affect, Normal Mood - Skin Skin Exam: Dry, Intact, Normal Color, Warm Discharge Plan - Discharge Medications Prescriptions: amLODIPine [Norvasc] 10 mg PO DAILY #30 cloNIDine [Catapres] 0.5 mg PO DAILY #30 Metoclopramide HCl [Reglan] 5 mg PO BIDAC #60 tablet Omeprazole 40 mg PO DAILY #30 capsule.dr - Follow Up Plan Condition: GOOD Disposition: HOME/ ROUTINE Instructions: Clonidine (By mouth), Metoclopramide (By mouth), Omeprazole (By mouth), Amlodipine (By mouth), Colonoscopy (DC), Heart Healthy Diet (DC), Upper Endoscopy (DC), Anemia (DC) Additional Instructions: Patient stable for discharge home as per Dr. Black and GI Dr. Hansen Patient to resume home medications and to additionally take new medications as prescribed: Omeprazole 40mg PO daily Disp#30 Reglan 5mg PO BID before meals Disp#60 Patient to follow up with PMD within 7 days. Patient to also follow up with GI within 2 weeks. Patient is to have a repeat EGD within 8 weeks and to have a repeat colonsocopy within 1 year. Patient has been advised to not eat many citrus foods. Patient has also been strongly advised to begin taking OTC iron tablets daily. If symptoms persist or worsen patient advised to visit ER immediately. Instructions discussed in detail with patient who understands and agrees. Referrals: Anna Hansen [Staff Provider] - Garland Black Jr., MD [Medical Doctor] -
[2017-01-18 17:22] VITALS: PULSE 77
[2017-01-19] MEDS ORDERED: Pneumococcal 23-Valent Vaccine IM ONE (10:00)
--- NOTE | 2017-01-20 23:46 | CON ---
DATE: 01/16/[address] Zack Hansen to Dr. Black. I was called for GI consultation by the admitting MD. The patient is seen and fully examined on 01/16 as requested by the admitting medical team on 01/16/2017. The entire chart is reviewed, including but not limited to the most recent lab and radiology study re sults, current and previous medication list, current and the previous medical events as well as aller gy to medication list and all the available current and the previous medical records. Case discussed with the staff at length on the floor post my GI consultation. HISTORY OF PRESENT ILLNESS: This is a 56-year-old male who was admitted to the hospital through the Emergency Room with admitting complaint of generalized severe weakness and fatigue, especially by barbara roach, for the last 3-5 days prior to his admission to the point he fell down to the ground while walk ing to his with reported black tarry stool for the last 3-4 days prior to his admission. Has be en complaining recently of severe lower extremity and lower back pain for which Percocet had been pre scribed as well as Xanax for his severe anxiety syndrome. Denied any chest pain, significant shortne ss breath, palpitations, chills or fever. No hemetemesis. PAST MEDICAL HISTORY: Including but not limited to: 1. Hypertension. 2. Depression. 3. Coronary artery disease. 4. Peptic ulcer disease. 5. Severe anxiety syndrome. 6. Chronic lower back pain syndrome. 7. Status post appendectomy. 8. Status post coronary artery stent insertion x 2. FAMILY HISTORY: Unknown. SOCIAL HISTORY: Positive for excessive alcohol intake as well as cigarette smoking. ALLERGY TO MEDICATION: Unknown. LABORATORY DATA: After being admitted to the hospital, the patient was found to have hemoglobin of 6. 2 with hematocrit 18.4, but normal white blood cells and normal with increased BUN at 32, but l ow creatinine of 0.6 with low potassium of 3.5. PHYSICAL EXAMINATION: GENERAL: A 56-year-old male, awake, alert, oriented, appears to be pale. VITAL SIGNS: Afebrile with a pulse of 96, respiratory rate 20-24 with blood pressure 140/78. HEENT: Showed pale, dry oral mucoid membrane. Nonicteric sclerae. LYMPH NODES: No lymphadenitis or lymphadenopathy. LUNGS: Scattered mild crepitation with decreased air entry at bases. HEART: Positive S1 and S2 with increased rate. ABDOMEN: Soft, mildly obese, mildly distended with generalized tenderness. No mass or organomegaly. No rebound tenderness or guarding. RECTAL: Positive tone, guaiac positive stool, black tarry. EXTREMITIES: Lower extremities, mild edematous changes and tenderness but no clubbing or cyanosis. NEUROLOGIC: No reported new neurological deficits, sensory or motor. The patient appears to be some what anxious and restless. IMPRESSION: 1. Severe anemia. 2. Melena to rule out upper versus lower gastrointestinal bleeding. 3. Rule out occult gastrointestinal malignancy. 4. Alcoholism by history. 5. Known history of hypertension. 6. Known history of coronary artery disease with status post cardiac stent insertion. 7. Known history of severe anxiety syndrome. 8. Appendectomy by history. SUGGESTIONS: 1. Agree with your plan. 2. Rehydration. 3. Blood transfusion to keep hemoglobin around 10 gram percent. 4. Proton pump inhibitors IV. 5. Peripheral hyperalimentation versus central hyperalimentation. 6. Cancer markers. 7. Endoscopic evaluation of the GI tract when the patient is more stable clinically. 8. Further recommendations to follow and the patient may need surgical consultation as well as psych iatric consultation due to his excessive alcohol intake. Thank you for letting me participate in your patient's case management. Further recommendations to leonor desai. Zack Hansen MD cc: 14 TT: 01/20/2017 23:45:49 Confirmation # [id number] Dictation # [id number]
== END 2017-01-18 17:00 | disposition home or self-care (01) | DRG 174 ==
LOC: C.ER 12:36 → C.9E 13:35 → C.6T 14:07
PROVIDERS: ADMIT Internal Medicine; ATTEND Internal Medicine
PROC: 30233N1 Transfusion of Nonautologous Red Blood Cells into Peripheral Vein, Percutaneous Approach (ICD-10-PCS; 2017-01-16)
PROC: 0DB78ZX Excision of Stomach, Pylorus, Via Natural or Artificial Opening Endoscopic, Diagnostic (ICD-10-PCS; 2017-01-17)
PROC: 0DB68ZX Excision of Stomach, Via Natural or Artificial Opening Endoscopic, Diagnostic (ICD-10-PCS; principal; 2017-01-17 11:25)
PROC: 0DBM8ZX Excision of Descending Colon, Via Natural or Artificial Opening Endoscopic, Diagnostic (ICD-10-PCS; 2017-01-18)
DX: K25.0 Acute gastric ulcer with hemorrhage (principal); D62 Acute posthemorrhagic anemia; K29.50 Unspecified chronic gastritis without bleeding; K58.9 Irritable bowel syndrome, unspecified; B96.81 Helicobacter pylori [H. pylori] as the cause of diseases classified elsewhere; B18.2 Chronic viral hepatitis C; I10 Essential (primary) hypertension; K44.9 Diaphragmatic hernia without obstruction or gangrene; K29.80 Duodenitis without bleeding; K64.8 Other hemorrhoids; I25.10 Atherosclerotic heart disease of native coronary artery without angina pectoris; Z95.810 Presence of automatic (implantable) cardiac defibrillator; Z95.5 Presence of coronary angioplasty implant and graft; Z87.891 Personal history of nicotine dependence